=== PATIENT | female | born 1990 | race Caucasian/White ===

== ENCOUNTER 2021-05-06 00:47 | Inpatient (IN) | payer SELFPAY ==
[2021-05-06] MEDS ORDERED: Nalbuphine 10 MG/1 ML Vial IVPUSH ONE (01:02)
[2021-05-06] MEDS ORDERED: Oxytocin/Lactated Ringers 10 UNIT/1,000 ML BAG IV ONE (01:21)
[2021-05-06] MEDS ORDERED: Nalbuphine 10 MG/1 ML Vial IVPUSH PRN (01:23)
[2021-05-06] MEDS ORDERED: Sodium Chloride 0.9% 10 ML Syringe FLUSH PRN (01:23)
[2021-05-06] MEDS ORDERED: Oxytocin/Lactated Ringers 10 UNIT/1,000 ML BAG IV SCH (01:30)
[2021-05-06] MEDS ORDERED: Lactated Ringers 1,000 ML IV SCH (01:30)
[2021-05-06] MEDS ORDERED: Oxytocin 10 Units/1 ML SDV ONE (01:34)
--- NOTE | 2021-05-06 01:45 | PCM.SN.2 ---
- Free Text/Narrative Note: Stage 1 - patient presented 7-8 cm. SROM. One dose of nubain given. Labs collected. AROM of very thickly meconium stained fluid. Progressed to complete. Stage II - of viable male, weight pending, APGARS 8/9 at 130. Head delivered in controlled manner over intact perineum. Mother screaming and uncooperative with pushing and with rebecca. Shoulder dystocia 60 seconds resolved with rebecca and suprapubic pressure. Positive cry immediately. Placed on maternal abdomen. Cord clamped and cut. Cord blood and cord segment collected. Stage III - of intact, meconium stained placenta. IV pulled out by patient with pushing. IM pitocin given. EBL 300.
--- NOTE | 2021-05-06 01:51 | PCM.LDHP ---
L&D History of Present Illness - General Date of Service: 05/06/21 Admit Problem/Dx: Patient Status Order with Admit Dx/Problem 05/06/21 01:23 Patient Status [ADT] Routine Admission Diagnosis/Problem Admission Diagnosis/Problem - History of Present Illness Introduction:: 31 year old at 37w6 presents with painful contractions that started at 9pm. [address] Bernardo complicated by sparse care, anxiety on sertraline. - Related Data Allergies/Adverse Reactions: Allergies Allergy/AdvReac Type Severity Reaction Status Date / Time No Known Allergies Allergy Verified 06/15/14 20:30 Home Medications: Home Meds Pnv with Ca,No.71/Iron/Fa [ Vitamin Tablet] 1 each PO DAILY 06/15/14 [History] Acetaminophen [Tylenol] 650 mg PO Q4H PRN #30 tablet 06/18/14 [Rx] Benzocaine/Menthol [Dermoplast Pain Relief Emmalena] 1 applic TOP ASDIRECTED PRN #1 canister 06/18/14 [Rx] Docusate Sodium [Colace] 100 mg PO BID PRN #10 cap 06/18/14 [Rx] Ibuprofen [Motrin] 600 mg PO Q4H PRN #30 tablet 06/18/14 [Rx] Lanolin [Lansinoh HPA] 1 applic TOP ASDIRECTED PRN #30 crm 06/18/14 [Rx] witch Glendy [Tucks] 1 pad TOP ASDIRECTED PRN #330 pad 06/18/14 [Rx] Past Medical History - Past Health History Medical/Surgical History: Denies Medical/Surgical History Social & Family History - Family History Family Medical History: No Pertinent Family History H&P Review of Systems - Review of Systems: Review Of Systems: See Below General: Reports: Chills, Diaphoresis HEENT: Reports: No Symptoms Pulmonary: Reports: Cough Cardiovascular: Reports: No Symptoms Gastrointestinal: Reports: No Symptoms Genitourinary: Reports: Other (contractions) Musculoskeletal: Reports: No Symptoms Skin: Reports: No Symptoms Psychiatric: Reports: No Symptoms Neurological: Reports: No Symptoms Hematologic/Lymphatic: Reports: No Symptoms Immunologic: Reports: No Symptoms L&D Exam - Exam Exam: See Below - OB Specific Contraction Intensity: Moderate to Strong Movement: Active Heart Tones: Present Heart Rate (FHR) Variability: Moderate (6-25 bpm) Presentation: Vertex - Grimes Score Grimes Score Cervix Position: Midposition Grimes Score Consistency: Soft Grimes Score Effacement: 51-70% Grimes Score Dilation: > 5 cm Grimes Score Infant's Station: -2 Grimes Score Total: 9 - Exam General: Alert, Oriented HEENT: PERRLA, Conjunctiva Clear, EACs Clear, EOMI, Hearing Intact, Mucosa Moist & [place], Nares Patent, Normal Nasal Septum, Posterior Pharynx Clear, TMs Clear Neck: Supple, Trachea Midline Lungs: Clear to Auscultation, Other (frequent cough, lungs clear) Cardiovascular: Tachycardia (120) GI/Abdominal Exam: Normal Bowel Sounds, Soft, Non-Tender, No Organomegaly, No Distention, No Abnormal Bruit, No Mass, Pelvis Stable Extremities: Normal Inspection, Normal Range of Motion, Non-Tender, No Pedal Edema, Normal Capillary Refill Skin: Warm, Dry, Intact Neurological: Cranial Nerves Intact, Reflexes Equal Bilateral Psychiatric: Alert, Normal Affect, Normal Mood - Patient Data Lab Results Last 24 hrs: Laboratory Results - last 24 hr 05/06/21 Range/Units 01:00 WBC 11.90 H (3.98-10.04) K/mm3 RBC 3.67 L (3.98-5.22) M/mm3 Hgb 10.7 L D (11.2-15.7) gm/dl Hct 32.1 L (34.1-44.9) % MCV 87.5 (79.4-94.8) fl MCH 29.2 (25.6-32.2) pg MCHC 33.3 (32.2-35.5) g/dl RDW Std Deviation 38.8 (36.4-46.3) fL Plt Count 312 D (182-369) K/mm3 MPV 9.8 (9.4-12.3) fl Neut % (Auto) 68.1 (34.0-71.1) % Lymph % (Auto) 23.4 (19.3-51.7) % [place] % (Auto) 7.4 (4.7-12.5) % Eos % (Auto) 0.2 L (0.7-5.8) Baso % (Auto) 0.2 (0.1-1.2) % Neut # (Auto) 8.11 H (1.56-6.13) K/mm3 Lymph # (Auto) 2.79 (1.18-3.74) K/mm3 [place] # (Auto) 0.88 H (0.24-0.36) K/mm3 Eos # (Auto) 0.02 L (0.04-0.36) K/mm3 Baso # (Auto) 0.02 (0.01-0.08) K/mm3 Result Diagrams: 05/06/21 01:00 Problem List Initiated/Reviewed/Updated: Yes Orders Last 24hrs: Active Orders 24 hr Category Date Time Status Patient Status [ADT] Routine ADT 05/06/21 01:23 Active Activity as Tolerated [RC] PFP Care 05/06/21 01:23 Active Communication Order [RC] ASDIRECTED Care 05/06/21 01:23 Active Heart Tones [RC] ASDIRECTED Care 05/06/21 01:24 Active Non Stress Test [RC] PER UNIT ROUTINE Care 05/06/21 01:23 Active Notify Provider [RC] PFP Care 05/06/21 01:23 Active Notify Provider [RC] PRN Care 05/06/21 01:23 Active Peripheral IV Care [RC] . DIRECTED Care 05/06/21 01:24 Active Vital Signs [RC] PER UNIT ROUTINE Care 05/06/21 01:23 Active CORONAVIRUS COVID-19 LEATHA [MOLEC] Stat Lab 05/06/21 01:25 Ordered HEPATITIS C ANTIBODY [CHEM] Stat Lab 05/06/21 01:00 Received RAPID PLASMA REAGIN,RPR [CHEM] Routine Lab 05/06/21 01:00 Received TYPE AND SCREEN [BBK] Stat Lab 05/06/21 01:00 Received Lactated Ringers [Ringers, Lactated] 1,000 ml Med 05/06/21 01:30 Active IV ASDIRECTED Nalbuphine [Nubain] Med 05/06/21 01:23 Active 10 mg IVPUSH Q2H PRN Oxytocin/Lactated Ringers [Pitocin in LR 10 Units/1,000 Med 05/06/21 01:30 Active ML] 10 unit in 1,000 ml IV .CONTINUOUS Sodium Chloride 0.9% [Saline Flush] Med 05/06/21 01:23 Active 10 ml FLUSH ASDIRECTED PRN Electronic Heart Tones Ext w TOCO [WOMSER] Ot 05/06/21 01:23 Ordered Routine Electronic Heart Tones Internal [WOMSER] Per Unit Ot 05/06/21 01:23 Ordered Routine Peripheral IV Insertion Adult [OM.PC] Routine Ot 05/06/21 01:23 Ordered Resuscitation Status Routine Resus Stat 05/06/21 01:23 Ordered Medication Orders Lactated Ringer's (Ringers, Lactated) 1,000 mls @ 100 mls/hr IV ASDIRECTED RICKEY Oxytocin/Lactated Ringer's (Pitocin In Lr 10 Units/1,000 Ml) 10 unit in 1,000 mls @ 500 mls/hr IV .CONTINUOUS RICKEY Nalbuphine HCl (Nalbuphine 10 Mg/1 Ml Vial) 10 mg IVPUSH Q2H PRN PRN Reason: Pain Sodium Chloride (Sodium Chloride 0.9% 10 Ml Syringe) 10 ml FLUSH ASDIRECTED PRN PRN Reason: Keep Vein Open Assessment/Plan Comment:: Term labor with rapid . Thick meconium. -Labs pending. Cough - covid pending
[2021-05-06] MEDS ORDERED: Misoprostol 100 MCG Tab PO ONE (02:09)
[2021-05-06] MEDS ORDERED: Oxytocin 10 Units/1 ML SDV IM ONE (02:11)
[2021-05-06] MEDS ORDERED: Benzocaine/Menthol 20%-0.5% Spray 78 GM Cannister TOP PRN (02:11)
[2021-05-06] MEDS ORDERED: Acetaminophen 325 MG Tab PO PRN (02:11)
[2021-05-06] MEDS ORDERED: Misoprostol 200 MCG Tab ONE (02:11)
[2021-05-06] MEDS ORDERED: Witch Hazel Medicated Pads 40/Jar TOP PRN (02:11)
[2021-05-06] MEDS: Ibuprofen 600 MG Tab PO PRN ×2 (02:47→09:48)
[2021-05-06] MEDS ORDERED: hydrOXYzine HCl 25 MG Tab PO ONE (20:00)
--- NOTE | 2021-05-07 07:04 | PCM.DCSUM1 ---
Discharge Summary - Hospital Course Free Text/Narrative:: Vinicio is a 31-year-old 3 now para 3-0-0-3 female admitted at 37+ weeks gestational age in active labor. She presented with advanced cervical dilation. She went on to spontaneously delivered. She has a history of anxiety on sertraline. She has a history of methamphetamine positive drug screen results. Stage 1 - patient presented 7-8 cm. SROM. One dose of nubain given. Labs collected. AROM of very thickly meconium stained fluid. Progressed to complete. Stage II - of viable male, weight pending, APGARS 8/9 at 130. Head delivered in controlled manner over intact perineum. Mother screaming and uncooperative with pushing and with rebecca. Shoulder dystocia 60 seconds resolved with rebecca and suprapubic pressure. Positive cry immediately. Placed on maternal abdomen. Cord clamped and cut. Cord blood and cord segment collected. Stage III - of intact, meconium stained placenta. IV pulled out by patient with pushing. IM pitocin given. EBL 300. Diagnosis: Stroke: No - Discharge Data Discharge Date: 05/07/21 Discharge Disposition: Home, Self-Care 01 Condition: Good - Referral to Home Health Primary Care Physician: Javier Bernardo MD - Discharge Diagnosis/Problem(s) (1) Methamphetamine abuse SNOMED Code(s): 827840313 ICD Code: F15.10 - OTHER STIMULANT ABUSE, UNCOMPLICATED Status: Acute Current Visit: Yes (2) 37 weeks gestation of SNOMED Code(s): 40616207 ICD Code: Z3A.37 - 37 WEEKS GESTATION OF Status: Acute Current Visit: Yes (3) History of anxiety SNOMED Code(s): 454513410 ICD Code: Z86.59 - PERSONAL HISTORY OF OTHER MENTAL AND BEHAVIORAL DISORDERS Status: Acute Current Visit: Yes - Patient Summary/Data Consults: Consultations 05/06/21 08:12 Consult to Case Management/Motion Picture Cameraman [CONS] Routine - Patient Instructions Diet: Regular Diet as Tolerated Activity: As Tolerated (No intercourse or tampons until bleeding resolves) Driving: May Drive Today Showering/Bathing: May Shower (May take a bath) Notify Provider of: Fever, Increased Pain, Swelling and Redness, Drainage - Discharge Plan Home Medications: Home Meds Pnv with Ca,No.71/Iron/Fa [ Vitamin Tablet] 1 each PO DAILY 06/15/14 [History] Sertraline [Zoloft] 100 mg PO DAILY 05/06/21 [History] Acetaminophen [Tylenol] 650 mg PO Q6H PRN tablet 05/07/21 [Rx] Ibuprofen [Motrin] 600 mg PO Q6H PRN tablet 05/07/21 [Rx] Referrals: Javier Bernardo MD [Primary Care Provider] - (Return to clinic[facility]. [facility] week.) - Discharge Summary/Plan Comment DC Time >30 min.: No Total # of Minutes for Discharge Time: 10 Discharge Summary/Plan Comment: Discharge instructions: 1. Discharge home 2. Diet, activity and follow-up discussed with patient. Recommend nursing diet with increased calories and calcium. 3. Precautions given concern increased pain, bleeding, temperature, signs/symptoms of DVT/PE. 4. Medications per home medication was printed, discussed with and given to the patient. 5. Return to clinic-Dr. Bernardo[facility] in 1 weeks. Diagnosis: 1. Term -delivered 2. Presumptive positive for methamphetamine on drug screen Condition: Good - Patient Data Vitals - Most Recent: Last Vital Signs Temp 36.8 C 05/07/21 03:05 Pulse 84 05/07/21 03:05 Resp 16 05/07/21 03:05 BP 107/72 05/07/21 03:05 Pulse Ox 99 05/07/21 03:05 Weight - Most Recent: 68.946 kg I&O - Last 24 hours: Intake & Output 05/06/21 05/07/21 05/07/21 22:59 06:59 14:59 Intake Total 360 Balance 360 Med Orders - Current: Current Medications Acetaminophen (Acetaminophen 325 Mg Tab) 650 mg PO Q6H PRN PRN Reason: mild pain or fever Last Admin: 05/06/21 07:59 Dose: 650 mg Documented by: Benzocaine/Menthol (Benzocaine/Menthol 20%-0.5% [place] 78 Gm Cannister) 0 gm TOP ASDIRECTED PRN PRN Reason: Perineal Comfort Measure Last Admin: 05/06/21 02:46 Dose: 1 can Documented by: Ibuprofen (Ibuprofen 600 Mg Tab) 600 mg PO Q6H PRN PRN Reason: Mild pain or fever Last Admin: 05/06/21 09:48 Dose: 600 mg Documented by: Ivette Reno (Ivette Reno Medicated Pads 40/Jar) 1 pad TOP ASDIRECTED PRN PRN Reason: Perineal Comfort Measure Last Admin: 05/06/21 02:45 Dose: 1 can Documented by: Discontinued Medications Hydroxyzine HCl (Hydroxyzine Hcl 25 Mg Tab) 25 mg PO ONETIME ONE Stop: 05/06/21 20:01 Last Admin: 05/06/21 20:24 Dose: 25 mg Documented by: Oxytocin/Lactated Ringer's (Pitocin In Lr 10 Units/1,000 Ml) Confirm Administered Dose 10 unit in 1,000 mls @ as directed IV .STK-MED ONE Stop: 05/06/21 01:22 Last Admin: 05/06/21 05:08 Dose: Not Given Documented by: Lactated Ringer's (Ringers, Lactated) 1,000 mls @ 100 mls/hr IV ASDIRECTED RICKEY Oxytocin/Lactated Ringer's (Pitocin In Lr 10 Units/1,000 Ml) 10 unit in 1,000 mls @ 500 mls/hr IV .CONTINUOUS RICKEY Misoprostol (Misoprostol 100 Mcg Tab) 600 mcg PO ONETIME ONE Stop: 05/06/21 02:10 Last Admin: 05/06/21 02:13 Dose: 600 mcg Documented by: Misoprostol (Misoprostol 200 Mcg Tab) Confirm Administered Dose 200 mcg .ROUTE .STK-MED ONE Stop: 05/06/21 02:12 Last Admin: 05/06/21 02:46 Dose: Not Given Documented by: Nalbuphine HCl (Nalbuphine 10 Mg/1 Ml Vial) 10 mg IVPUSH ONETIME ONE Stop: 05/06/21 01:03 Last Admin: 05/06/21 01:07 Dose: 5 mg Documented by: Nalbuphine HCl (Nalbuphine 10 Mg/1 Ml Vial) 10 mg IVPUSH Q2H PRN PRN Reason: Pain Oxytocin (Oxytocin 10 Units/1 Ml Sdv) Confirm Administered Dose 10 unit .ROUTE .STK-MED ONE Stop: 05/06/21 01:35 Last Admin: 05/06/21 05:08 Dose: Not Given Documented by: Oxytocin (Oxytocin 10 Units/1 Ml Sdv) 10 unit IM ONETIME ONE Stop: 05/06/21 02:12 Last Admin: 05/06/21 01:41 Dose: 10 unit Documented by: Sodium Chloride (Sodium Chloride 0.9% 10 Ml Syringe) 10 ml FLUSH ASDIRECTED PRN PRN Reason: Keep Vein Open
[2021-05-07 09:30] VITALS: BP 130/84; PULSE 86
== END 2021-05-07 09:00 | disposition home or self-care (01) | DRG 806 ==
LOC: JD.OBCHECK 00:47 → JD.OB 00:52 → JD.OBCHECK 01:15 → JD.OB 01:16 → UNDOADMOB 01:16 → JD.OB 01:23 → OBSVTOIN 01:30 → JD.OB 01:31
PROVIDERS: ADMIT Obstetrics & Gynecology; ATTEND Obstetrics & Gynecology
PROC: 10E0XZZ Delivery of Products of Conception, External Approach (ICD-10-PCS; principal; 2021-05-06)
PROC: 10907ZC Drainage of Amniotic Fluid, Therapeutic from Products of Conception, Via Natural or Artificial Opening (ICD-10-PCS; 2021-05-06)
DX: O77.0 Labor and delivery complicated by meconium in amniotic fluid (principal); O99.324 Drug use complicating childbirth; Z37.0 Single live birth; Z3A.37 37 weeks gestation of pregnancy; F15.10 Other stimulant abuse, uncomplicated; O99.344 Other mental disorders complicating childbirth; F41.9 Anxiety disorder, unspecified; O66.0 Obstructed labor due to shoulder dystocia; Z20.822 Contact with and (suspected) exposure to COVID-19
CPT/HCPCS: 36415; 59025; 59409; 80306; 85025; 86592; 86803; 86850; 86900; 86901; 87653; A9270-GY; G0480; J2300; J2590; U0002

== ENCOUNTER 2022-03-25 15:45 | Emergency (ER) | payer SELFPAY | END 2022-03-25 18:02 | LOC: JD.ED 15:45 | DX: Z53.21 Procedure and treatment not carried out due to patient leaving prior to being seen by health care provider (principal) ==

== ENCOUNTER 2022-09-11 13:17 | Inpatient (IN) | payer MEDICAID ==
[~2022-09-11 13:17] MED LIST: Bupivacaine 0.25% 10 ML SDV ONE; Phenylephrine HCl In 0.9% NaCl 1 MG/10 ML Vial ONE; ePHEDrine 50 MG/ML SDV ONE
[2022-09-11] MEDS ORDERED: Sodium Chloride 0.9% 10 ML Syringe FLUSH PRN (13:25)
[2022-09-11] MEDS ORDERED: Nalbuphine 10 MG/0.5 ML Syringe IVPUSH PRN (13:25)
[2022-09-11] MEDS ORDERED: Nalbuphine 10 MG/0.5 ML Syringe IVPUSH ONE (13:28)
[2022-09-11] MEDS ORDERED: Oxytocin/Lactated Ringers 10 UNIT/1,000 ML BAG IV SCH (13:30)
[2022-09-11] MEDS: Lactated Ringers 1,000 ML IV SCH ×2 (13:48→14:46)
[2022-09-11] MEDS ORDERED: fentaNYL 100 MCG/2 ML SDV ONE (13:53)
[2022-09-11] MEDS ORDERED: ePHEDrine 50 MG/ML SDV IVPUSH PRN (14:14)
[2022-09-11] MEDS ORDERED: Bupivacaine/fentaNYL/NS 100 ML Bag EPIDUR PRN (14:14)
[2022-09-11] MEDS ORDERED: fentaNYL 100 MCG/2 ML SDV EPIDUR PRN (14:14)
[2022-09-11] MEDS ORDERED: diphenhydrAMINE 50 MG/ML SDV IVPUSH PRN (14:14)
[2022-09-11] MEDS ORDERED: Docusate Sodium 100 MG Cap PO PRN (18:22)
[2022-09-11] MEDS ORDERED: Benzocaine/Menthol 20%-0.5% Spray 78 GM Cannister TOP PRN (18:22)
[2022-09-11] MEDS ORDERED: Witch Hazel Medicated Pads 40/Jar TOP PRN (18:22)
[2022-09-11] MEDS ORDERED: Acetaminophen 325 MG Tab PO PRN (18:22)
[2022-09-11] MEDS ORDERED: hydrOXYzine HCl 50 MG Tab PO SCH (21:00)
[2022-09-11] MEDS ORDERED: Sodium Chloride 0.9% 10 ML Syringe FLUSH SCH (21:00)
[2022-09-11] MEDS: Ibuprofen 600 MG Tab PO PRN (23:11)
[2022-09-12] MEDS: Ibuprofen 600 MG Tab PO PRN (04:13)
[2022-09-12 10:11] VITALS: BP 129/81; PULSE 98
== END 2022-09-12 09:40 | disposition home or self-care (01) | DRG 807 ==
LOC: JD.OBCHECK 13:17 → JD.OB 13:18 → JD.OBCHECK 13:25 → JD.OB 13:25 → OBSVTOIN 15:55 → JD.OB 15:56
PROVIDERS: ADMIT Obstetrics & Gynecology; ATTEND Obstetrics & Gynecology
PROC: 10E0XZZ Delivery of Products of Conception, External Approach (ICD-10-PCS; principal; 2022-09-11)
PROC: 3E0R3BZ Introduction of Anesthetic Agent into Spinal Canal, Percutaneous Approach (ICD-10-PCS; 2022-09-11)
PROC: 00HU33Z Insertion of Infusion Device into Spinal Canal, Percutaneous Approach (ICD-10-PCS; 2022-09-11)
PROC: 10907ZC Drainage of Amniotic Fluid, Therapeutic from Products of Conception, Via Natural or Artificial Opening (ICD-10-PCS; 2022-09-11)
DX: O99.324 Drug use complicating childbirth (principal); Z37.0 Single live birth; O99.62 Diseases of the digestive system complicating childbirth; O77.0 Labor and delivery complicated by meconium in amniotic fluid; K21.9 Gastro-esophageal reflux disease without esophagitis; F15.10 Other stimulant abuse, uncomplicated; Z3A.39 39 weeks gestation of pregnancy
CPT/HCPCS: 36415; 59025; 59409; 85025; 86592; A9270-GY; J2300; J3490; J7120

== ENCOUNTER 2023-01-05 17:16 | Emergency (ER) | payer SELFPAY ==
[2023-01-05] MEDS ORDERED: LORazepam 1 MG Tab PO ONE (19:40)
[2023-01-05] MEDS ORDERED: Ondansetron 4 MG Tab.DIS PO ONE (19:40)
[2023-01-05 19:48] LABS: BARBITURATE SCREEN,URINE NEGATIVE (CUTOFF=200); BENZODIAZEPINES SCREEN,URINE NEGATIVE (CUTOFF=150); BUPRENORPHINE SCREEN,URINE NEGATIVE (CUTOFF=10); METHADONE SCREEN, URINE NEGATIVE (CUTOFF=200); METHAMPHETAMINES SCREEN, URINE PRESUMPTIVE POSITIVE (CUTOFF=500); OXYCODONE SCREEN,URINE NEGATIVE (CUT0FF=100); PROPOXYPHENE SCREEN,URINE NEGATIVE (CUTOFF=300); THC SCREEN,URINE 20 NG/ML PRESUMPTIVE POSITIVE (CUTOFF=50)
[2023-01-05 19:50] LABS: AMPHETAMINES SCREEN, URINE PRESUMPTIVE POSITIVE (CUTOFF=500)
[2023-01-05 20:12] VITALS: BP 161/108; PULSE 98
== END 2023-01-05 20:02 | disposition other institution (70) ==
LOC: JD.ED 17:16
DX: F19.10 Other psychoactive substance abuse, uncomplicated (principal); Z72.0 Tobacco use
CPT/HCPCS: 80306; 81025; 99282; A9270